=== PATIENT | male | born 1965 | race African-American/Black ===

== ENCOUNTER 2018-09-11 08:42 | Emergency (ER) | payer OTHER ==
[~2018-09-11] VITALS: Ht 172.7 cm; Wt 65.8 kg
--- NOTE | 2018-09-11 08:42 | NUR ---
ED Nurse Note: pt refuse to answer questions for Mini-Cog.
--- NOTE | 2018-09-11 08:54 | NUR ---
ED Nurse Note: patient brought into ED by RA Crystal from the street with [employer] for medical clearnace. patient is under custody, police officers by the bedside. Refuse to answer questions at this time.
[2018-09-11 08:55] VITALS: BP 133/82
[2018-09-11 09:38] LABS: BASOPHILS % (AUTO) 1.6 % (0.0-2.0); EOSINOPHILS % (AUTO) 1.2 % (0.0-3.0); HEMATOCRIT 42.2 % (42.0-52.0); HEMOGLOBIN 14.1 G/DL (14.2-18.0); LYMPHOCYTES % (AUTO) 33.3 % (20.0-45.0); MEAN CORPUSCULAR VOLUME 92 FL (80-99); MONOCYTES % (AUTO) 11.1 % (1.0-10.0); NEUTROPHILS % (AUTO) 52.8 % (45.0-75.0); PLATELET COUNT 224 K/UL (150-450); RED BLOOD COUNT 4.58 M/UL (4.70-6.10); RED CELL DISTRIBUTION WIDTH 12.2 % (11.6-14.8); WHITE BLOOD COUNT 6.2 K/UL (4.8-10.8)
[2018-09-11 09:45] LABS: ANION GAP 6 mmol/L (5-15); BLOOD UREA NITROGEN 28 mg/dL (7-18); CALCIUM 9.7 MG/DL (8.5-10.1); CARBON DIOXIDE 28 MMOL/L (21-32); CHLORIDE 105 MMOL/L (98-107); POTASSIUM 4.4 MMOL/L (3.5-5.1); SODIUM 139 MMOL/L (136-145)
[2018-09-11 09:50] LABS: ALANINE AMINOTRANSFERASE 7 U/L (12-78); ALBUMIN 3.9 G/DL (3.4-5.0); ALBUMIN/GLOBULIN RATIO 1.1 (1.0-2.7); ALKALINE PHOSPHATASE 85 U/L (46-116); ASPARTATE AMINO TRANSFERASE 27 U/L (15-37); BILIRUBIN,TOTAL 0.4 MG/DL (0.2-1.0)
--- NOTE | 2018-09-11 10:01 | Diagnostic Imaging Report ---
Indications: Altered mental status Technique: Spiral acquisitions obtained through the brain. Angled axial and coronal 5 x 5 mm slices were reconstructed. Total dose length product 1340.9 mGycm. CTDI vol(s) 70.38 mGy. Dose reduction achieved using automated exposure control Comparison: None. Findings: No acute intracranial hemorrhage or edema. No mass effect nor midline shift. Minimal periventricular deep white matter low-attenuation is noted. Otherwise normal salas-white differentiation. Visualized orbits and sinuses are unremarkable. The mastoids are clear. The calvarium is intact Impression: Negative for acute intracranial bleed or mass effect Minimal deep white matter changes, may reflect chronic small vessel ischemic change The CT scanner at [facility] is accredited by the [employer] and the scans are performed using protocols designed to limit radiation exposure to as low as reasonably achievable to attain images of sufficient resolution adequate for diagnostic evaluation.
[2018-09-11] MEDS ORDERED: Ammonia Inhalant 0.33mL 1 Amp INH ONE ×2 (10:23→10:30)
[2018-09-11 10:52] VITALS: BP 133/82
--- NOTE | 2018-09-11 10:54 | NUR ---
ED Nurse Note: patient ambulated to use the restroom with escort of police officers
--- NOTE | 2018-09-11 10:54 | NUR ---
ED Nurse Note: pt was cleared for discharge by DAVID, discharge instrcution/paper/ explained to the patient, patient refuses to answer at this point. ID band removed. pt alert and awake pt able to walk with escort of police matron. pt left the ed with all belongings.
--- NOTE | 2018-09-11 10:55 | NUR ---
ED Nurse Note: unable to do minicog/homeless patient discharge planning checklist, patient refused to answer any question, patient is under police custody, upon discharge patient was escorted out of ED with ground intelligence officer.
--- NOTE | 2018-09-11 10:55 | NUR ---
Note marielena in EDM - 09/11/18 at 1056 by ZOLTAN ED Nurse Note: patient brought into ED by RA Crystal from the street with [employer] for medical clearnace. patient is under custody, police officers by the bedside. Refuse to answer questions at this time.
--- NOTE | 2018-09-11 10:56 | Emergency Room Report ---
History of Present Illness General Chief Complaint: Behavioral Complaint Source: Patient, EMS Present Illness HPI Patient presents emergency department for medical clearance. Patient is currently in police custody. Patient appeared to be altered and not communicative. Concerned perhaps patient is doing drugs. No other complaints are noted. Symptoms noted to be severe. Patient is unable to provide any history. All the history was obtained from paramedics as well as the police. Patient apparently was not cooperative with police and. Patient is not cooperative with me. No other social sinus symptoms were noted. No other modifying factors noted. No other complaints are noted. Allergies: Coded Allergies: UNABLE TO ASSESS (Unverified , 09/11/18) Patient History Past Medical History: unable to obtain Past Surgical History: unable to obtain Family History: unable to obtain Social History: drug use Reviewed Nursing Documentation: PMH: Agreed; PSxH: Agreed Nursing Documentation-PMH Past Medical History: No Stated History Review of Systems All Other Systems: limited - Patient not cooperative Physical Exam Vital Signs Date Time Temp Pulse Resp B/P (MAP) Pulse Ox O2 Delivery O2 Flow Rate FiO2 09/11/18 08:38 98.4 75 12 133/82 99 Room Air Sp02 EP Interpretation: reviewed, normal General Appearance: other - Disheveled, sleepy Head: normocephalic Eyes: normal eye exam ENT: normal ENT inspection Neck: supple/symm/no masses Respiratory: effort normal, no wheezing Cardiovascular: regular rate, rhythm Gastrointestinal: non-tender, non-distended, normal bowel sounds Genitourinary: no CVA tenderness Musculoskeletal: normal inspection, normal ROM Neurologic: other - Nonfocal, unable to full examine Psychiatric: other - Unable to assess Skin: normal inspection, no rash Medical Decision Making Diagnostic Impression: Primary Impression: Medical clearance for incarceration Additional Impression: Drug abuse ER Course Patient presents emergency department today with acute altered mental status. Patient is currently positive police custody. Police is requesting medical clearance. Patient exam shows very sleepy and uncooperative patient. Differential diagnoses include alcohol drug abuse Lexxel abnormality CVA just name a few. Given the severity of the patient's presentation I felt this is a highly complex patient. This patient required extensive workup. Patient laboratory workup does show evidence of methamphetamine and marijuana in the urine. Head CT was noted to be negative. Laboratory workup otherwise is normal. Patient was observed in emergency department. Ammonia nitrate was used to wake patient up. Patient became more awake appeared alert was using the bathroom. Patient is still in police custody we'll discharge the police care for further care. We'll medically cleared patient for incarceration. Labs Test 09/11/18 09:15 White Blood Count 6.2 K/UL (4.8-10.8) Red Blood Count 4.58 M/UL (4.70-6.10) Hemoglobin 14.1 G/DL (14.2-18.0) Hematocrit 42.2 % (42.0-52.0) Mean Corpuscular Volume 92 FL (80-99) Mean Corpuscular Hemoglobin 30.7 PG (27.0-31.0) Mean Corpuscular Hemoglobin Concent 33.4 G/DL (32.0-36.0) Red Cell Distribution Width 12.2 % (11.6-14.8) Platelet Count 224 K/UL (150-450) Mean Platelet Volume 7.2 FL (6.5-10.1) Neutrophils (%) (Auto) 52.8 % (45.0-75.0) Lymphocytes (%) (Auto) 33.3 % (20.0-45.0) Monocytes (%) (Auto) 11.1 % (1.0-10.0) Eosinophils (%) (Auto) 1.2 % (0.0-3.0) Basophils (%) (Auto) 1.6 % (0.0-2.0) Sodium Level 139 MMOL/L (136-145) Potassium Level 4.4 MMOL/L (3.5-5.1) Chloride Level 105 MMOL/L (98-107) Carbon Dioxide Level 28 MMOL/L (21-32) Anion Gap 6 mmol/L (5-15) Blood Urea Nitrogen 28 mg/dL (7-18) Creatinine 1.0 MG/DL (0.55-1.30) Estimat Glomerular Filtration Rate > 60 mL/min (>60) Glucose Level 86 MG/DL (74-106) Calcium Level 9.7 MG/DL (8.5-10.1) Total Bilirubin 0.4 MG/DL (0.2-1.0) Aspartate Amino Transf (AST/SGOT) 27 U/L (15-37) Alanine Aminotransferase (ALT/SGPT) 7 U/L (12-78) Alkaline Phosphatase 85 U/L (46-116) Total Protein 7.5 G/DL (6.4-8.2) Albumin 3.9 G/DL (3.4-5.0) Globulin 3.6 g/dL Albumin/Globulin Ratio 1.1 (1.0-2.7) Salicylates Level 3.2 ug/mL (2.8-20) Urine Opiates Screen Negative (NEGATIVE) Acetaminophen Level < 2 MCG/ML (10-30) Urine Barbiturates Screen Negative (NEGATIVE) Phencyclidine (PCP) Screen Negative (NEGATIVE) Urine Amphetamines Screen Positive (NEGATIVE) Urine Benzodiazepines Screen Negative (NEGATIVE) Urine Cocaine Screen Negative (NEGATIVE) Urine Marijuana (THC) Screen Positive (NEGATIVE) Serum Alcohol < 3 mg/dL CT/MRI/US Diagnostic Results CT/MRI/US Diagnostic Results : Imaging Test Ordered: CT head: Negative Last Vital Signs Date Time Temp Pulse Resp B/P (MAP) Pulse Ox O2 Delivery O2 Flow Rate FiO2 09/11/18 08:55 98.4 75 14 133/82 99 Room Air Status: improved Disposition: D/C TO LAW ENFORCEMENT IN CUST Condition: Stable Scripts Unable to Obtain Active Prescriptions or Reported Meds Departure Forms: Senior Living Clearance Patient Instructions: Finding Treatment for Addiction Jonas Payton MD Sep 11, 2018 10:56
== END 2018-09-11 10:49 ==
LOC: EDBD 08:42 → EMR 09:22
DX: Z02.89 Encounter for other administrative examinations (principal); F19.10 Other psychoactive substance abuse, uncomplicated
CPT/HCPCS: 36415; 70450; 80053; 80307; 85025; 99284; G0480; 80329